=== PATIENT | male | born 1990 | race Caucasian/White ===

== ENCOUNTER → 2017-08-29 | Outpatient (CLI) | payer OTHER ==
[~2017-08-29] MED LIST: CIPR500 PO; CYCL10 PO; HYDACE5 PO; IBUP600 PO; NAPR375 PO; NAPR500EC PO; Naprosyn500 MG PO; Norco 10-325 T1 EACH PO; OXYACE5T PO; PRED10 PO; RXCYCL10 PO
[2017-08-29 13:24] LABS: BASOPHILS ABSOLUTE AUTO 0.03 K/mm3 (0.00-0.23); BASOPHILS PERCENT AUTO 1 % (0-2); EOSINOPHILS ABSOLUTE AUTO 0.02 K/mm3 (0.00-0.68); EOSINOPHILS PERCENT AUTO 0 % (0-6); Hematocrit 38.5 % (37.0-53.0); Hemoglobin 12.8 g/dL (13.5-17.5); IMMATURE GRAN ABSOLUTE AUTO 0.01 K/mm3 (0.00-0.10); IMMATURE GRAN PERCENT AUTO 0 % (0-1); LYMPHOCYTES ABSOLUTE AUTO 1.54 K/mm3 (0.84-5.20); LYMPHOCYTES PERCENT AUTO 27 % (21-46); MONOCYTES ABSOLUTE AUTO 0.47 K/mm3 (0.16-1.47); MONOCYTES PERCENT AUTO 8 % (4-13); Mean Corpuscular HGB 28.4 pg (26.0-34.0); Mean Corpuscular HGB Conc 33.2 g/dL (31.5-36.5); Mean Corpuscular Volume 85 fL (80-100); Mean Platelet Volume 10.3 fL (9.1-12.4); NEUTROPHILS ABSOLUTE AUTO 3.61 K/mm3 (1.96-9.15); NEUTROPHILS PERCENT AUTO 64 % (41-73); Platelet Count 256 K/mm3 (150-400); RDW Coefficient Variation 13.3 % (11.7-14.2); Red Blood Cell Count 4.51 M/mm3 (4.30-5.90); White Blood Cell Count 5.68 K/mm3 (4.00-11.30)
[2017-08-29 14:54] LABS: Alanine Aminotransfer (ALT/SGP 18 U/L (12-78); Albumin, Blood 4.3 g/dL (3.4-5.0); Albumin/Globulin Ratio 1.4 (0.8-1.8); Alk Phos 110 U/L (50-136); Anion Gap 9 mmol/L (6-16); Aspartate Aminotrans (AST/SGOT 19 U/L (12-37); Bilirubin, Total 0.5 mg/dL (0.1-1.0); Blood Urea Nitrogen 14 mg/dL (8-24); Bun/Creatinine Ratio 24.9 (12.0-20.0); CO2, Blood 26 mmol/L (21-32); Calcium, Blood 9.1 mg/dL (8.5-10.1); Chloride, Blood 100 mmol/L (98-108); Creatinine, Blood 0.56 mg/dL (0.60-1.20); Globulin, Blood 3.1 g/dL (2.2-4.0); Glomerular Filtration Rate >60 (60-); Glucose, Blood 100 mg/dL (70-99); Potassium, Blood 4.8 mmol/L (3.5-5.5); Sodium, Blood 135 mmol/L (136-145); Total Protein, Blood 7.4 g/dL (6.4-8.2)
== END ==
LOC: LAB SHORT 11:30
PROVIDERS: Family Medicine
DX: F11.20 Opioid dependence, uncomplicated (principal)
CPT/HCPCS: 80053; 85025

== ENCOUNTER → 2017-09-19 | Outpatient (CLI) | payer OTHER ==
[2017-09-22 04:24] LABS: MDA Not Detected (NOTDET); MDEA Not Detected (NOTDET); MDMA Not Detected (NOTDET)
== END ==
LOC: LAB 15:25
PROVIDERS: Family Medicine
DX: Z51.81 Encounter for therapeutic drug level monitoring (principal); F11.20 Opioid dependence, uncomplicated; Z79.899 Other long term (current) drug therapy
CPT/HCPCS: G0480

== ENCOUNTER 2019-01-12 00:03 | Emergency (ER) | payer OTHER ==
[~2019-01-12] VITALS: Ht 180.3 cm; Wt 86.2 kg
== END 2019-01-12 01:15 ==
LOC: ER 00:03
DX: S21.112A Laceration without foreign body of left front wall of thorax without penetration into thoracic cavity, initial encounter (principal); S41.112A Laceration without foreign body of left upper arm, initial encounter; S41.111A Laceration without foreign body of right upper arm, initial encounter; V29.9XXA Motorcycle rider (driver) (passenger) injured in unspecified traffic accident, initial encounter
CPT/HCPCS: 71101; 73030; 73080; 73130; 90471; 90714; 99284-25

== ENCOUNTER 2019-07-08 19:18 | Emergency (ER) | payer OTHER ==
[~2019-07-08] VITALS: Ht 180.3 cm; Wt 86.2 kg
[2019-07-08] MEDS ORDERED: Amoxicillin875 MG PO (20:43)
[2019-07-08] MEDS ORDERED: IBUP800 PO (20:43)
== END 2019-07-08 21:14 | disposition home or self-care (01) ==
LOC: ER 19:18
DX: K04.7 Periapical abscess without sinus (principal)
CPT/HCPCS: 99282; A9270-GY

== ENCOUNTER 2019-11-21 12:07 | Emergency (ER) | payer OTHER ==
[~2019-11-21] VITALS: Ht 180.3 cm; Wt 86.2 kg
[~2019-11-21 12:07] MED LIST changes: +Amoxicillin875 MG PO; +IBUP800 PO
[2019-11-21 13:10] LABS: BASOPHILS ABSOLUTE AUTO 0.03 K/mm3 (0.00-0.23); BASOPHILS PERCENT AUTO 1 % (0-2); EOSINOPHILS PERCENT AUTO 0 % (0-6); Hematocrit 44.7 % (37.0-53.0); IMMATURE GRAN ABSOLUTE AUTO 0.01 K/mm3 (0.00-0.10); IMMATURE GRAN PERCENT AUTO 0 % (0-1); LYMPHOCYTES ABSOLUTE AUTO 1.52 K/mm3 (0.84-5.20); LYMPHOCYTES PERCENT AUTO 29 % (21-46); MONOCYTES ABSOLUTE AUTO 0.41 K/mm3 (0.16-1.47); MONOCYTES PERCENT AUTO 8 % (4-13); Mean Corpuscular HGB 28.4 pg (26.0-34.0); Mean Corpuscular HGB Conc 33.6 g/dL (31.5-36.5); Mean Corpuscular Volume 85 fL (80-100); NEUTROPHILS ABSOLUTE AUTO 3.35 K/mm3 (1.96-9.15); NEUTROPHILS PERCENT AUTO 63 % (41-73); Platelet Count 259 K/mm3 (150-400); RDW Coefficient Variation 13.4 % (11.7-14.2); RDW Standard Deviation 41.8 fL (35.1-46.3); Red Blood Cell Count 5.28 M/mm3 (4.30-5.90); White Blood Cell Count 5.32 K/mm3 (4.00-11.30)
[2019-11-21 13:14] LABS: Albumin, Blood 4.2 g/dL (3.4-5.0); Alk Phos 196 U/L (50-136); Anion Gap 8 mmol/L (6-16); Bilirubin, Total 0.7 mg/dL (0.1-1.0); Blood Urea Nitrogen 19 mg/dL (8-24); Bun/Creatinine Ratio 29.5 (12.0-20.0); CO2, Blood 25 mmol/L (21-32); Chloride, Blood 103 mmol/L (98-108); Creatinine, Blood 0.65 mg/dL (0.60-1.20); Globulin, Blood 4.3 g/dL (2.2-4.0); Glomerular Filtration Rate >60 (60-); Glucose, Blood 121 mg/dL (70-99); Potassium, Blood 4.2 mmol/L (3.5-5.5); Sodium, Blood 136 mmol/L (136-145); Total Protein, Blood 8.5 g/dL (6.4-8.2)
[2019-11-21 13:22] LABS: Alanine Aminotransfer (ALT/SGP 1630 U/L (12-78); Aspartate Aminotrans (AST/SGOT 1233 U/L (12-37)
[2019-11-21 14:42] LABS: Source, Urine Voided
[2019-11-21 14:51] LABS: Blood, Urine Neg (Neg); Glucose Qualitative, Urine Neg (Neg); Ketones, Urine 2+ (Neg); Leukocyte Esterase, Urine 1+ (Neg); Nitrite, Urine Neg (Neg); Protein, Urine 1+ (Neg); Specific Gravity, Urine 1.015 (1.003-1.022); Urobilinogen, Urine 2+ (Normal)
[2019-11-21 15:05] LABS: Appearance, Urine Clear (Clear); Bilirubin, Urine 1+ (Neg); Color, Urine Amber (P-Yellow)
[2019-11-21 15:07] LABS: Bacteria Few /hpf; Mucus Light (0-Heavy); Red Blood Cells, Urine 0-2 /hpf (0-2); Squamous Epithelial Cells Rare /hpf (Few)
[2019-11-21] MEDS ORDERED: ONDA4ODT MM (16:53)
[2019-11-21] MEDS ORDERED: PROM25S PR (16:53)
[2019-11-23 04:31] LABS: HBSAG SCREEN Negative (Negative); HEP A AB, IGM Negative (Negative); HEP B CORE AB, IGM Negative (Negative); HEP C VIRUS AB >11.0 (0.0-0.9)
== END 2019-11-21 17:34 | disposition home or self-care (01) ==
LOC: ER 12:07
PROVIDERS: Emergency Medicine; Physician Assistant
DX: K75.9 Inflammatory liver disease, unspecified (principal); R53.1 Weakness; F15.10 Other stimulant abuse, uncomplicated; F11.10 Opioid abuse, uncomplicated; Z87.891 Personal history of nicotine dependence
CPT/HCPCS: 36415; 76705; 80053; 80074; 81001; 83690; 85025; 87086; 96361; 96374; 96375; 99284-25; J1200; J1630; J2405; J2765; J7030

== ENCOUNTER 2020-08-19 20:13 | Emergency (ER) | payer OTHER ==
[~2020-08-19] VITALS: Ht 180.3 cm; Wt 90.7 kg
[~2020-08-19 20:13] MED LIST changes: +Bactrim Ds Tab1 EACH PO; +CEPH500 PO; +ONDA4ODT MM; +PROM25S PR
[2020-08-19] MEDS ORDERED: Cleocin HCl300 MG PO (21:35)
== END 2020-08-19 21:51 | disposition home or self-care (01) ==
LOC: ER 20:13
DX: J02.9 Acute pharyngitis, unspecified (principal); K08.89 Other specified disorders of teeth and supporting structures; Z87.891 Personal history of nicotine dependence
CPT/HCPCS: 87081; 87430; 96372-59; 99284-25; A9270; J1100; J1885

== ENCOUNTER 2021-03-24 13:38 | Day surgery (SDC) | payer OTHER ==
[~2021-03-24] VITALS: Ht 180.3 cm; Wt 90.0 kg
[~2021-03-24 13:38] MED LIST changes: +Cleocin HCl300 MG PO; +HYDACE10B PO
--- NOTE | 2021-03-24 17:10 | NUR ---
PTS SURGERY WAS CANCELLED DUE TO LACK OF IV ACCESS.PT REQUESTED TO GO HOME,DR CERDA AGREED TO LET PT GO HOME AND WILL CONTACT PT TOMORROW.
== END 2021-03-24 17:13 | disposition home or self-care (01) ==
LOC: ORSCMMR 13:38
DX: S52.692A Other fracture of lower end of left ulna, initial encounter for closed fracture (principal); Z53.9 Procedure and treatment not carried out, unspecified reason
CPT/HCPCS: A9270; J0690; J1100; J1170; J2250; J2405; J2704; J3010; J7120

== ENCOUNTER 2021-03-28 12:58 | Day surgery (SDC) | payer OTHER ==
--- NOTE | 2021-03-28 16:10 | NUR ---
ATTEMPTED POWER-GLIDE X2 IN [place]. UNABLE TO THREAD LINE UP VEIN. PT VERY NERVOUS. TOOK ABOUT 15 MINUTES TO TALK PATIENT INTO RELAXING PRIOR TO PROCEDURE.
== END 2021-03-28 15:45 | disposition home or self-care (01) ==
LOC: ATC 12:58
DX: S52.692A Other fracture of lower end of left ulna, initial encounter for closed fracture (principal); S62.346A Nondisplaced fracture of base of fifth metacarpal bone, right hand, initial encounter for closed fracture; F19.11 Other psychoactive substance abuse, in remission; V86.96XA Unspecified occupant of dirt bike or motor/cross bike injured in nontraffic accident, initial encounter; Z87.891 Personal history of nicotine dependence
CPT/HCPCS: 99211

== ENCOUNTER 2021-06-08 21:41 | Emergency (ER) | payer OTHER ==
[~2021-06-08] VITALS: Ht 180.3 cm; Wt 90.7 kg
[2021-06-09] MEDS ORDERED: CEPH500 PO (01:14)
== END 2021-06-09 01:35 | disposition home or self-care (01) ==
LOC: ER 21:41
DX: M79.89 Other specified soft tissue disorders (principal); Z87.891 Personal history of nicotine dependence
CPT/HCPCS: 73130; 93970; A9270; J1885

== ENCOUNTER 2021-06-21 14:52 | Emergency (ER) | payer OTHER ==
[~2021-06-21] VITALS: Ht 180.3 cm; Wt 90.7 kg
[2021-06-21] MEDS ORDERED: PRED20 PO (15:24)
[2021-06-21] MEDS ORDERED: VALACYCLOVIR1000 MG PO (15:24)
== END 2021-06-21 15:41 | disposition home or self-care (01) ==
LOC: ER 14:52
DX: G51.0 Bell's palsy (principal); Z86.718 Personal history of other venous thrombosis and embolism; Z87.891 Personal history of nicotine dependence
CPT/HCPCS: 99283

== ENCOUNTER 2021-08-07 03:20 | Emergency (ER) | payer OTHER ==
[~2021-08-07] VITALS: Ht 180.3 cm; Wt 86.2 kg
[~2021-08-07 03:20] MED LIST changes: +PRED20 PO; +VALACYCLOVIR1000 MG PO
[2021-08-07] MEDS ORDERED: Bactrim Ds Tab1 EACH PO (03:37)
[2021-08-07] MEDS ORDERED: IBU600 MG PO (03:37)
== END 2021-08-07 03:54 | disposition home or self-care (01) ==
LOC: ER 03:20
DX: F15.10 Other stimulant abuse, uncomplicated (principal); L02.413 Cutaneous abscess of right upper limb; Z87.891 Personal history of nicotine dependence
CPT/HCPCS: 99282; A9270

== ENCOUNTER 2021-08-13 19:44 | Inpatient (IN) | payer OTHER ==
[~2021-08-13] VITALS: Ht 180.3 cm; Wt 85.4 kg
[~2021-08-13 19:44] MED LIST changes: +IBU600 MG PO
[2021-08-13 20:47] LABS: BASOPHILS ABSOLUTE AUTO 0.03 K/mm3 (0.00-0.23); BASOPHILS PERCENT AUTO 0 % (0-2); EOSINOPHILS ABSOLUTE AUTO 0.01 K/mm3 (0.00-0.68); EOSINOPHILS PERCENT AUTO 0 % (0-6); Hematocrit 35.1 % (37.0-53.0); Hemoglobin 11.5 g/dL (13.5-17.5); IMMATURE GRAN ABSOLUTE AUTO 0.03 K/mm3 (0.00-0.10); IMMATURE GRAN PERCENT AUTO 0 % (0-1); LYMPHOCYTES ABSOLUTE AUTO 2.02 K/mm3 (0.84-5.20); LYMPHOCYTES PERCENT AUTO 20 % (21-46); MONOCYTES PERCENT AUTO 10 % (4-13); Mean Corpuscular HGB 26.7 pg (26.0-34.0); Mean Corpuscular HGB Conc 32.8 g/dL (31.5-36.5); Mean Corpuscular Volume 81 fL (80-100); Mean Platelet Volume 9.1 fL (9.1-12.4); NEUTROPHILS ABSOLUTE AUTO 7.19 K/mm3 (1.96-9.15); NEUTROPHILS PERCENT AUTO 70 % (41-73); Platelet Count 425 K/mm3 (150-400); RDW Coefficient Variation 16.1 % (11.7-14.2); RDW Standard Deviation 48.5 fL (35.1-46.3); Red Blood Cell Count 4.31 M/mm3 (4.30-5.90); White Blood Cell Count 10.28 K/mm3 (4.00-11.30)
[2021-08-13 21:06] LABS: Alanine Aminotransfer (ALT/SGP 40 U/L (12-78); Albumin, Blood 3.4 g/dL (3.4-5.0); Albumin/Globulin Ratio 0.8 (0.8-1.8); Alk Phos 142 U/L (50-136); Anion Gap 6 mmol/L (6-16); Aspartate Aminotrans (AST/SGOT 18 U/L (12-37); Bilirubin, Total 0.2 mg/dL (0.1-1.0); Blood Urea Nitrogen 14 mg/dL (8-24); Bun/Creatinine Ratio 13.6 (12.0-20.0); CO2, Blood 26 mmol/L (21-32); Calcium, Blood 8.7 mg/dL (8.5-10.1); Chloride, Blood 105 mmol/L (98-108); Creatinine, Blood 1.03 mg/dL (0.60-1.20); Globulin, Blood 4.3 g/dL (2.2-4.0); Glomerular Filtration Rate >60 (60-); Glucose, Blood 104 mg/dL (70-99); Sodium, Blood 137 mmol/L (136-145); Total Protein, Blood 7.7 g/dL (6.4-8.2)
[2021-08-14 03:54] LABS: Influenza A, PCR NEGATIVE (NEGATIVE); Influenza B, PCR NEGATIVE (NEGATIVE); Resp Syncytial Virus, PCR NEGATIVE (NEGATIVE); SARS-Cov-2 (COVID-19) PCR, MMC NEGATIVE (NEGATIVE)
--- NOTE | 2021-08-14 05:41 | NUR ---
SHIFT SUMMARY PT ER ADMIT THIS SHIFT FOR R YAHAIRAUDLER ABCESS R/T TO METH USE THAT FAILED OUTPT TREATMENT WITH PO BACTRIM. PT HAS RECEIVED ZOSYN, VANCO, AND IV FLUIDS. HX OF RECENT METH ABUSE ABOUT 2 DAYS AGO PER PT REPORT. RIGHT SHOULDER IS RED AND AND INFLAMMED, BUT NOT DRAINING. PT IS VERY LETHARGIC, AND COULD BARELY STAY AWAKE THROUGH ADMISSION PROCESS, DRIFTING OFF TO SLEEP CONSTANTLY. PT REPORTS SHOULDER PAIN BUT IS VERY SLEEPY AND CANNOT STAY AWAKE. PT HAS BEEN REFUSING TREATMENT AND REFUSED AM LAB DRAWN. SURGICAL CONSULT IN PLACE FOR POSSIBLE I&D OF RIGHT SHOULDER. PT NPO AT THIS TIME.
--- NOTE | 2021-08-14 10:19 | NUR ---
PT LEFT ROOM STATING THAT HE WAS MEETING HIS FRIEND AND MOM "DOWNSTAIRS." CHARGE NURSE, SORAYA REYNAGA AND THIS NURSE TOLD HIM THAT HE IS NOT SUPPOSED TO GO OUTSIDE. PATIENT WENT ANYWAY. DON Gaines RN FROM DAY SURGERY CALLED THIS NURSE TO STATE THAT PAIENT WILL BE PICKED UP IN 30 MINUTES. CLOTHIER GUIDE VISITOR PRESENT WHEN NURSE ASKED PATIENT NOT TO GO. HE IS LOOKING FOR PATIENT NOW ([id number])
--- NOTE | 2021-08-14 18:31 | NUR ---
SHIFT SUMMARY PT AXO, IRRITABLE AND WITHDRAWN. SEE NOTE ABOUT GOING OUTSIDE EARLIER IN SHIFT. PT ATE WHILE OUTSIDE. SURGERY POSTPONED UNTIL TOMORROW. PATIENT IS TO BE NPP AT MIDNIGHT TONIGHT. IV PATENT AND INFUSING PER EMAR. PATIENT SLEPT THROUGHOUT THE REST OF THE SHIFT. MEDICATED FOR PAIN X1 THIS SHIFT. BED IN LOW POSITION, CALL LIGHT WITHIN REACH. ON TELE, NSR AT 86. BED IN LOW POSITION, CALL LIGHT WITHIN REACH.
--- NOTE | 2021-08-15 02:45 | NUR ---
LABS PT IS REFUSING LABS FOR THE SECOND MORNING IN A ROW. STATING THAT HE DOES NOT WANT TO BE POKED, AND ASKED ME TO DRAW FROM HIS IV. I STATED THAT WE COULD NOT DO THAT DUE TO POLICY AND EXPLAINED THE IMPORTANCE OF HAVING HIS LABS DRAWN. HE CONTINUED TO REFUSED. PT HAS 0300 DOSE OF VANCO ORDERED AND NEEDS A VANCO LAB DRAWN. SPOKE WITH MAYA JIMENEZ PHARMACIST, SHE STATES OK TO HANG 0300 DOSE OF VANCO ANYWAY AT 0300 AND THAT SHE WILL ORDER VANCO LAB LATER IN THE MORNING AT 1000 AND HOPES THAT PT WILL BE MORE AGREEABLE THEN.
--- NOTE | 2021-08-15 05:14 | NUR ---
SHIFT SUMMARY PT HAS BEEN SLEEPING MOST OF THE SHIFT. INTERACTS MINALLY WITH STAFF AND IS QUITE WITHDRAWN AND IRRITABLE. HE DOES NOT WANT TO BE DISTURBED BY STAFF AND HAS BEEN REFUSING LAB DRAWS. PLAN IS FOR I&D OF RIGHT SHOULDER TODAY, IT REMAINS RED, SWOLLEN AND PAINFUL TO TOUCH. MEDICATED FOR PAIN WITH TORADOL WITH EFFECT. IV ANTIBIOTCS PER ORDERS. PT CONFIRMS NPO STATUS SINCE MIDNIGHT. INDEPENDENT IN THE ROOM, VITALS STABLE. NSR ON TELE.
--- NOTE | 2021-08-15 08:12 | NUR ---
PT LEFT AMA PULLED IV TUBING OFF, CAUSING PORT TO LEAK BLOOD, WOULD NOT ALLOW THIS RN TO REMOVE IT BUT DID ALLOW TO CLAMP SHOW IT WAS NOT ACTIVELY LEAKING, STATING "LEAVE ME ALONE" AND LEFT UNIT. ATTEMPTED TO ASK PT AGAIN AT ELEVATOR TO ALLOW RN TO REMOVE IV AND AGAIN PT STATED TO LEAVE HIM ALONE AND GOT IN ELEVATOR. DID NOT SIGN AMA PAPERWORK. NOTIIFED WAGON DRILLER AND DR YOUNG.
== END 2021-08-15 08:12 | disposition left against medical advice (07) | DRG 603 ==
LOC: ER 19:44 → MEDS 08-14 04:03
PROVIDERS: Physician Assistant; Student in an Organized Health Care Education/Training Program; ADMIT Internal Medicine
DX: L02.413 Cutaneous abscess of right upper limb (principal); F15.10 Other stimulant abuse, uncomplicated; Z20.822 Contact with and (suspected) exposure to COVID-19; Z53.29 Procedure and treatment not carried out because of patient's decision for other reasons; Z86.718 Personal history of other venous thrombosis and embolism; Z87.891 Personal history of nicotine dependence; Z91.19 Patient's noncompliance with other medical treatment and regimen
CPT/HCPCS: 0241U; 36415; 73201; 76882; 80053; 83605; 85025; 87040; 96365; 99285-25; A9270; J1885; J2543; J3370; J7030; J7050; Q9967

== ENCOUNTER 2023-02-14 21:50 | Inpatient (IN) | payer OTHER ==
[~2023-02-14] VITALS: Ht 175.3 cm; Wt 83.4 kg
[2023-02-14 22:08] LABS: BASOPHILS ABSOLUTE AUTO 0.06 K/mm3 (0.00-0.23); BASOPHILS PERCENT AUTO 0 % (0-2); EOSINOPHILS ABSOLUTE AUTO 0.01 K/mm3 (0.00-0.68); EOSINOPHILS PERCENT AUTO 0 % (0-6); Hematocrit 39.3 % (37.0-53.0); Hemoglobin 13.3 g/dL (13.5-17.5); IMMATURE GRAN ABSOLUTE AUTO 0.17 K/mm3 (0.00-0.10); IMMATURE GRAN PERCENT AUTO 1 % (0-1); LYMPHOCYTES ABSOLUTE AUTO 2.17 K/mm3 (0.84-5.20); LYMPHOCYTES PERCENT AUTO 9 % (21-46); MONOCYTES ABSOLUTE AUTO 1.35 K/mm3 (0.16-1.47); MONOCYTES PERCENT AUTO 6 % (4-13); Mean Corpuscular HGB 28.2 pg (26.0-34.0); Mean Corpuscular HGB Conc 33.8 g/dL (31.5-36.5); Mean Corpuscular Volume 83 fL (80-100); Mean Platelet Volume 9.8 fL (9.1-12.4); NEUTROPHILS ABSOLUTE AUTO 19.71 K/mm3 (1.96-9.15); NEUTROPHILS PERCENT AUTO 84 % (41-73); Platelet Count 475 K/mm3 (150-400); RDW Coefficient Variation 14.3 % (11.7-14.2); RDW Standard Deviation 43.6 fL (35.1-46.3); Red Blood Cell Count 4.72 M/mm3 (4.30-5.90); White Blood Cell Count 23.47 K/mm3 (4.00-11.30)
[2023-02-14 22:22] LABS: International Normalized Ratio 0.99; Prothrombin Time Results 10.4 Sec (9.7-11.5)
[2023-02-14 22:36] LABS: Alanine Aminotransfer (ALT/SGP 21 U/L (12-78); Alk Phos 110 U/L (50-136); Anion Gap 8 mmol/L (6-16); Aspartate Aminotrans (AST/SGOT 18 U/L (12-37); Bilirubin, Total 0.3 mg/dL (0.1-1.0); Blood Urea Nitrogen 18 mg/dL (8-24); Bun/Creatinine Ratio 14.8 (12.0-20.0); CO2, Blood 24 mmol/L (21-32); Chloride, Blood 109 mmol/L (98-108); Creatinine, Blood 1.22 mg/dL (0.60-1.20); Ethanol (Alcohol), Blood, Med <3 mg/dL; Glomerular Filtration Rate 81 (60-); Glucose, Blood 125 mg/dL (70-99); Potassium, Blood 4.4 mmol/L (3.5-5.5); Sodium, Blood 141 mmol/L (136-145)
[2023-02-15] VITALS (51 sets, daily range): BP systolic 107–153; BP diastolic 78–109
[2023-02-15] MEDS ORDERED: BUPRENORPHINE HC8 MG (01:45)
[2023-02-15 04:25] LABS: BASOPHILS ABSOLUTE AUTO 0.03 K/mm3 (0.00-0.23); BASOPHILS PERCENT AUTO 0 % (0-2); EOSINOPHILS PERCENT AUTO 0 % (0-6); Hematocrit 35.9 % (37.0-53.0); Hemoglobin 12.1 g/dL (13.5-17.5); IMMATURE GRAN ABSOLUTE AUTO 0.09 K/mm3 (0.00-0.10); IMMATURE GRAN PERCENT AUTO 1 % (0-1); LYMPHOCYTES ABSOLUTE AUTO 1.42 K/mm3 (0.84-5.20); LYMPHOCYTES PERCENT AUTO 8 % (21-46); MONOCYTES ABSOLUTE AUTO 1.89 K/mm3 (0.16-1.47); MONOCYTES PERCENT AUTO 10 % (4-13); Mean Corpuscular HGB 28.5 pg (26.0-34.0); Mean Corpuscular HGB Conc 33.7 g/dL (31.5-36.5); Mean Corpuscular Volume 85 fL (80-100); Mean Platelet Volume 10.2 fL (9.1-12.4); NEUTROPHILS ABSOLUTE AUTO 15.51 K/mm3 (1.96-9.15); NEUTROPHILS PERCENT AUTO 82 % (41-73); Platelet Count 344 K/mm3 (150-400); RDW Coefficient Variation 14.3 % (11.7-14.2); RDW Standard Deviation 43.8 fL (35.1-46.3); Red Blood Cell Count 4.25 M/mm3 (4.30-5.90); White Blood Cell Count 18.94 K/mm3 (4.00-11.30)
[2023-02-15 04:44] LABS: Albumin, Blood 3.6 g/dL (3.4-5.0); Albumin/Globulin Ratio 1.1 (0.8-1.8); Bilirubin, Total 0.7 mg/dL (0.1-1.0); Bun/Creatinine Ratio 18.6 (12.0-20.0); Calcium, Blood 8.4 mg/dL (8.5-10.1); Creatinine, Blood 0.97 mg/dL (0.60-1.20); Globulin, Blood 3.3 g/dL (2.2-4.0); Potassium, Blood 3.8 mmol/L (3.5-5.5); Total Protein, Blood 6.9 g/dL (6.4-8.2)
--- NOTE | 2023-02-15 06:05 | NUR ---
SHIFT SUMMARY PATIENT TO ICU 14 FROM ED AT 0210. PATIENT IS ON KETAMINE FOR PAIN MANAGEMENT INFUSING AT 0.5 MG/KG/HR. PATIENT RESPONDS TO VERBAL STIMULI, ORIENTED X4. 02 SATS 100% ON RA. HR SR 90, BP STABLE, DENIES CP/PRESSURE. LEFT LOWER EXTREMITY IN SPLINT THAT ER DOCTOR PLACE, PATIENT ABLE TO MOVE TOES AND CAP REFILL WNL. DR. CRABTREE ANSWERING SERVICE CALLED. ROAD RASH THROUGHOUT, PHOTOS IN CHART. PATIENT UNABLE TO VOID, BLADDER SCAN DONE AND 251 MLS. PATIENT ADMITS TO METH USE YESTERDAY, SECURITY TO ROOM AND DISPOSED OF SMALL AMOUNT OF SUBSTANCE THAT PATIENT CLAIMED TO BE METH. SECURITY ALSO COUNTED AND SECURED CLAUDIO. IGNITION RISK ASSESSED HOURLY, PATIENT STATES UNDERSTANDING. NO RISK AT THIS TIME.
--- NOTE | 2023-02-15 08:31 | NUR ---
ASSUMED CARE REPORT FROM ELSY SEO AT 0700. PT RESTING IN BED. WAKES c VERBAL STIMULI. A&OX 4. FOLLOWS DIRECTIONS. C/O 10/10 PAIN TO LEFT LEG. APPEARS TO REST WHEN UNDISTURBED. KETAMINE GTT INFUSING FOR PAIN. SPLINT TO LLE. CAP REFILL <3 SEC. PULSE OX ON LEFT TOE. CT COMPLETE THIS AM. PLAN TO GO TO OR FOR SURGICAL REPAIR p NOON. MULTIPLE AREAS OF ROAD RASH TO BODY. ATTEMPTED TO CONTACT FOR UPDATE, LEFT MESSAGE. WILL CONTINUE TO MONITOR.
--- NOTE | 2023-02-15 13:32 | NUR ---
TRANSFER TO OR TEAM TO ROOM FOR CONSENT AND TRANSFER TO OR. PT INCREASINGLY AGITATED. KETAMINE GTT HAD BEEN TITRATED OFF, PT SLEEPING WHEN UNDISTURBED. WHEN AWAKEN, BEGINS YELLING AND CURSING. MEDICATED FOR PAIN ORDERED. OK TO RESTART KETAMINE PER ANESTHESIA. PT TO OR AT 1320.
[2023-02-16 00:19] VITALS: BP 141/98
[2023-02-16 05:14] LABS: BASOPHILS ABSOLUTE AUTO 0.01 K/mm3 (0.00-0.23); BASOPHILS PERCENT AUTO 0 % (0-2); EOSINOPHILS PERCENT AUTO 0 % (0-6); Hematocrit 31.2 % (37.0-53.0); Hemoglobin 10.8 g/dL (13.5-17.5); IMMATURE GRAN ABSOLUTE AUTO 0.02 K/mm3 (0.00-0.10); IMMATURE GRAN PERCENT AUTO 0 % (0-1); LYMPHOCYTES ABSOLUTE AUTO 1.46 K/mm3 (0.84-5.20); LYMPHOCYTES PERCENT AUTO 17 % (21-46); MONOCYTES PERCENT AUTO 9 % (4-13); Mean Corpuscular HGB Conc 34.6 g/dL (31.5-36.5); Mean Corpuscular Volume 84 fL (80-100); Mean Platelet Volume 9.7 fL (9.1-12.4); NEUTROPHILS PERCENT AUTO 74 % (41-73); Platelet Count 316 K/mm3 (150-400); RDW Coefficient Variation 14.7 % (11.7-14.2); Red Blood Cell Count 3.73 M/mm3 (4.30-5.90); White Blood Cell Count 8.69 K/mm3 (4.00-11.30)
[2023-02-16 05:18] VITALS: BP 132/97
--- NOTE | 2023-02-16 05:27 | NUR ---
E0S NOTE: PATIENT RESTING QUIETLY BUT AROUSABLE TO STIMULI, STATED NONE OF THE PAIN MEDICATION WORKS. FOLLOWED COMMANDS APPROPRIATELY. BLADDER SCANNED AT BEGINNING OF SHIFT, STRAIGHT CATHED +600ML OUT. BLADDER SCANNED AGAIN AT APPROX 0400 SHOWING 200ML. PATIENT QUIET AND COOPERATIVE. VSS.
[2023-02-16 05:33] LABS: Albumin, Blood 3.1 g/dL (3.4-5.0); Albumin/Globulin Ratio 0.9 (0.8-1.8); Bilirubin, Total 0.5 mg/dL (0.1-1.0); Bun/Creatinine Ratio 21.6 (12.0-20.0); Calcium, Blood 8.3 mg/dL (8.5-10.1); Creatinine, Blood 0.65 mg/dL (0.60-1.20); Globulin, Blood 3.3 g/dL (2.2-4.0); Potassium, Blood 3.7 mmol/L (3.5-5.5); Total Protein, Blood 6.4 g/dL (6.4-8.2)
[2023-02-16 07:06] VITALS: BP 123/87
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
--- NOTE | 2023-02-16 18:23 | NUR ---
SHIFT SUMMARY PT POD 1 EXTERNAL FIXATION OF LLE. RANGEL WRAP TO LLE C/D/I. PT REPORTS GOOD SENSATION TO BLE. REPORTS PAIN 10/10 WHEN PAIN MEDICATION WEARS OFF (APROX EVERY 2 HRS) PT REPORTS TOLERABLE PAIN WITH 10MG ROXICODONE Q4, 1MG DILAUDID Q2, AND 30MG TORADOL Q6. PT WAS NAUSEATED TONIGHT SO GIVEN SL ZOFRAN. DRESSING TO MULTIPLE ABRASIONS ON BACK CLEANED W/SOAP AND WATER, NON-ADHERANT DRESSING, AND THEN CLEAN PILLOW CASES WERE LAID BEHIND BACK TO AVOID INCREASED SKIN IRRITATION WITH TAPE.
[2023-02-16 20:19] VITALS: BP 120/90
[2023-02-17 03:46] VITALS: BP 120/88
[2023-02-17 04:17] LABS: BASOPHILS ABSOLUTE AUTO 0.01 K/mm3 (0.00-0.23); BASOPHILS PERCENT AUTO 0 % (0-2); EOSINOPHILS PERCENT AUTO 0 % (0-6); Hemoglobin 9.7 g/dL (13.5-17.5); IMMATURE GRAN ABSOLUTE AUTO 0.02 K/mm3 (0.00-0.10); IMMATURE GRAN PERCENT AUTO 0 % (0-1); LYMPHOCYTES ABSOLUTE AUTO 2.66 K/mm3 (0.84-5.20); LYMPHOCYTES PERCENT AUTO 35 % (21-46); MONOCYTES ABSOLUTE AUTO 0.67 K/mm3 (0.16-1.47); MONOCYTES PERCENT AUTO 9 % (4-13); Mean Corpuscular HGB 28.6 pg (26.0-34.0); Mean Corpuscular HGB Conc 33.4 g/dL (31.5-36.5); Mean Corpuscular Volume 86 fL (80-100); Mean Platelet Volume 10.1 fL (9.1-12.4); NEUTROPHILS ABSOLUTE AUTO 4.32 K/mm3 (1.96-9.15); NEUTROPHILS PERCENT AUTO 56 % (41-73); Platelet Count 261 K/mm3 (150-400); RDW Coefficient Variation 14.5 % (11.7-14.2); RDW Standard Deviation 45.3 fL (35.1-46.3); Red Blood Cell Count 3.39 M/mm3 (4.30-5.90); White Blood Cell Count 7.68 K/mm3 (4.00-11.30)
--- NOTE | 2023-02-17 04:26 | NUR ---
SHIFT SUMMARY NO ACUTE CHANGES THIS SHIFT. LEFT LEG REMAINS ELEVATED ON PILLOWS. RANGEL WRAP APPEARS CDI. PAIN MANAGED WITH TORADOL/DILAUDID/ROXICODONES. USING URINAL TO VOID. SHARON REG DIET. PLAN FOR MOBILIZATION TODAY WITH PHYSICAL THERAPY. USES CALL LIGHT APPROPRIATELY.
[2023-02-17 04:40] LABS: Albumin, Blood 2.8 g/dL (3.4-5.0); Albumin/Globulin Ratio 0.8 (0.8-1.8); Bilirubin, Total 0.3 mg/dL (0.1-1.0); Bun/Creatinine Ratio 30.3 (12.0-20.0); Calcium, Blood 8.1 mg/dL (8.5-10.1); Creatinine, Blood 0.69 mg/dL (0.60-1.20); Globulin, Blood 3.5 g/dL (2.2-4.0); Potassium, Blood 3.5 mmol/L (3.5-5.5); Total Protein, Blood 6.3 g/dL (6.4-8.2)
--- NOTE | 2023-02-17 06:25 | NUR ---
PT ENCOURAGED TO DRINK MORE FLUIDS. URINE MINIMAL AND DARK IN COLOR. GATORADE AND ICE GIVEN TO PT PER REQUEST.
[2023-02-17 07:39] VITALS: BP 118/92
[2023-02-17 07:40] VITALS: BP 119/87
--- NOTE | 2023-02-17 08:20 | NUR ---
PT ASSESSED FOR IGNITION SOURCES, NO FINDINGS.
[2023-02-17 15:18] VITALS: BP 124/88
--- NOTE | 2023-02-17 19:06 | NUR ---
SHIFT SUMMARY PT POD# 2. PAIN HAS BEEN DIFFICULT TO MANAGE. PT IS GETTING DILAUDID PO AND TORADOL FOR PAIN. PT RATES HIS PAIN AT 10/10 WHEN PAIN MEDICATION IS DUE, UPON REASSESSMENT PAIN DECREASES TO 8/10, PT APPEARS CALM AND DOES NOT SHOW SIGNS OF PAIN AFTER MEDICATION IS GIVEN. ICE AND ELEVATION ALSO USED TO HELP MANAGE PAIN AND SWELLING. PT WORKED WITH THERAPY TODAY AND TOLERATED WELL. PT HAS HAD A DECREASED APPETITE WITH LOW FLUID INTAKE. PT HAS BEEN ENCOURAGED TO TAKE FLUIDS AND HAS BEEN OFFERED DIFFERENT FLUIDS TO INCREASE INTAKE. REPORT GIVEN TO MARK SEO.
--- NOTE | 2023-02-17 19:42 | NUR ---
VISITOR BROUGHT A VAPE PEN TO THE PT. VAPE PEN REMOVED FROM THE ROOM AND PLACED IN THE PATIENTS DRAWER.
[2023-02-17 20:26] VITALS: BP 126/89
--- NOTE | 2023-02-18 04:04 | NUR ---
SHIFT SUMMARY NO ACUTE CHANGES TO REPORT OVERNIGHT, MEDICATED FOR PAIN PER EMAR. SURGICAL SITE WNL AND DRESSING IS INTACT. PT DENIES N/T IN LEFT FOOT. DRESSINGS APPLIED TO ROAD RASH ON BACK THIS SHIFT. VITALS ARE STABLE. AFFECT IS FLAT AND WITHDRAWN, BUT PT COOPERATIVE WITH CARE. BED IN LOWEST POSITION, CALL LIGHT WITHIN REACH.
[2023-02-18 04:36] VITALS: BP 119/89
--- NOTE | 2023-02-18 05:01 | NUR ---
FIRE RISK ASSESSED THIS SHIFT, PT EDUCATED ON FIRE RISKS AND IGNITION SOURCES, PT DENIES HAVING IGNITION SOURCES.
[2023-02-18 05:02] LABS: BASOPHILS ABSOLUTE AUTO 0.02 K/mm3 (0.00-0.23); BASOPHILS PERCENT AUTO 0 % (0-2); EOSINOPHILS ABSOLUTE AUTO 0.13 K/mm3 (0.00-0.68); EOSINOPHILS PERCENT AUTO 2 % (0-6); Hematocrit 27.5 % (37.0-53.0); Hemoglobin 9.4 g/dL (13.5-17.5); IMMATURE GRAN ABSOLUTE AUTO 0.01 K/mm3 (0.00-0.10); IMMATURE GRAN PERCENT AUTO 0 % (0-1); LYMPHOCYTES ABSOLUTE AUTO 1.86 K/mm3 (0.84-5.20); LYMPHOCYTES PERCENT AUTO 31 % (21-46); MONOCYTES ABSOLUTE AUTO 0.53 K/mm3 (0.16-1.47); MONOCYTES PERCENT AUTO 9 % (4-13); Mean Corpuscular HGB 28.7 pg (26.0-34.0); Mean Corpuscular HGB Conc 34.2 g/dL (31.5-36.5); Mean Corpuscular Volume 84 fL (80-100); NEUTROPHILS ABSOLUTE AUTO 3.42 K/mm3 (1.96-9.15); NEUTROPHILS PERCENT AUTO 57 % (41-73); Platelet Count 285 K/mm3 (150-400); RDW Coefficient Variation 14.4 % (11.7-14.2); RDW Standard Deviation 44.5 fL (35.1-46.3); Red Blood Cell Count 3.27 M/mm3 (4.30-5.90); White Blood Cell Count 5.97 K/mm3 (4.00-11.30)
[2023-02-18 05:34] LABS: Bun/Creatinine Ratio 30.3 (12.0-20.0); Calcium, Blood 8.3 mg/dL (8.5-10.1); Creatinine, Blood 0.6 mg/dL (0.60-1.20); Potassium, Blood 3.7 mmol/L (3.5-5.5)
[2023-02-18 07:02] VITALS: BP 115/87
[2023-02-18] MEDS ORDERED: MIRALAX17 GM PO (12:16)
[2023-02-18] MEDS ORDERED: HYDMOR2 PO (12:17)
--- NOTE | 2023-02-18 12:40 | NUR ---
PT PICKED UP PERSONAL BELONGINGS FROM SECURITY. TRANSPORT ARRANGED FOR 2PM.
[2023-02-18 13:14] VITALS: BP 120/85
--- NOTE | 2023-02-18 13:41 | NUR ---
DISCHARGE PT EDUCATED ON AND RECEIVED PRINTED DISCHARGE INSTRUCTIONS AND VERBALIZED AN UNDERSTANDING. DILAUDID HARD RX GIVEN TO PT. PT DISCHARGED WITH TRANSPORT IN PERSONAL W/C + FWW + PERSONAL BELONGINGS. BELONGINGS FROM SECURITY ALREADY PICKED UP AND IN PTS POSESSION.
== END 2023-02-18 13:45 | disposition home or self-care (01) | DRG 493 ==
LOC: ER 21:50 → ICUE 21:51 → SURS 02-15 14:51
PROVIDERS: Emergency Medicine; Family Medicine; ADMIT Internal Medicine
PROC: 0D9670Z Drainage of Stomach with Drainage Device, Via Natural or Artificial Opening (ICD-10-PCS; principal; 2023-02-14)
PROC: 0QSH35Z Reposition Left Tibia with External Fixation Device, Percutaneous Approach (ICD-10-PCS; 2023-02-15)
DX: S82.872A Displaced pilon fracture of left tibia, initial encounter for closed fracture (principal); N17.9 Acute kidney failure, unspecified; S82.452A Displaced comminuted fracture of shaft of left fibula, initial encounter for closed fracture; S92.255A Nondisplaced fracture of navicular [scaphoid] of left foot, initial encounter for closed fracture; V89.2XXA Person injured in unspecified motor-vehicle accident, traffic, initial encounter; S82.852A Displaced trimalleolar fracture of left lower leg, initial encounter for closed fracture; S40.811A Abrasion of right upper arm, initial encounter; F15.10 Other stimulant abuse, uncomplicated; G89.29 Other chronic pain; S30.811A Abrasion of abdominal wall, initial encounter; F11.10 Opioid abuse, uncomplicated; Z86.718 Personal history of other venous thrombosis and embolism; Z98.890 Other specified postprocedural states; Z87.891 Personal history of nicotine dependence
CPT/HCPCS: 27810; 31500; 70450; 71045; 71260; 72125; 73590; 73700; 74177; 76000; 80048; 80053; 83690; 83880; 85025; 85610; 90471; 90714; 90715; 93005; 93010; 94002; 96372; 96374-59; 96375; 96375-59; 96376; 96376-59; 97161; 99291-25; A9270; C1713; G0378; G0390; G0480; J0330; J0690; J1100; J1170; J1650; J1790; J1885; J2060; J2405; J2704; J2765; J3010; J7030; J7040; Q9967

== ENCOUNTER 2023-03-09 09:14 | Day surgery (SDC) | payer OTHER ==
[~2023-03-09 09:14] MED LIST changes: +BUPRENORPHINE HC8 MG; +HYDMOR2 PO; +MIRALAX17 GM PO
--- NOTE | 2023-03-09 10:19 | NUR ---
03/09/23 1019 Alireza Nichols PROCEDURE CANCELED, PER DR. BRUMFIELD. PT LEFT BEFORE RIDE COULD BE ARRANGED.
[2023-03-09] MEDS ORDERED: Bactrim Ds Tab1 EACH PO (11:33)
[2023-03-09] MEDS ORDERED: CEPH500 PO (11:33)
[2023-03-14] MEDS ORDERED: Norco 5-325 Ta1 EACH (14:34)
== END 2023-03-09 10:15 | disposition home or self-care (01) ==
LOC: ORSCSDS 09:14
DX: S82.872D Displaced pilon fracture of left tibia, subsequent encounter for closed fracture with routine healing (principal); Z53.9 Procedure and treatment not carried out, unspecified reason
CPT/HCPCS: J0171; J0690; J2795; J7120

== ENCOUNTER 2023-03-09 10:17 | Emergency (ER) | payer OTHER ==
[~2023-03-09] VITALS: Ht 180.3 cm; Wt 88.5 kg
[2023-03-09 10:53] VITALS: BP 129/85
[2023-03-09] MEDS ORDERED: CEPH500 PO (11:33)
[2023-03-09] MEDS ORDERED: Bactrim Ds Tab1 EACH PO (11:33)
== END 2023-03-09 11:41 | disposition home or self-care (01) ==
LOC: ER 10:17
DX: L02.31 Cutaneous abscess of buttock (principal); Z87.891 Personal history of nicotine dependence; Z79.899 Other long term (current) drug therapy
CPT/HCPCS: 99282

== ENCOUNTER 2023-03-16 11:20 | Day surgery (SDC) | payer OTHER ==
[2023-03-16] VITALS (17 sets, daily range): BP systolic 123–156; BP diastolic 76–120
[~2023-03-16] VITALS: Ht 177.8 cm; Wt 90.9 kg
[~2023-03-16 11:20] MED LIST changes: +Norco 5-325 Ta1 EACH
--- NOTE | 2023-03-16 11:30 | NUR ---
Into sds via wheel chair. Pt has ext fix to left lower extremity. Pt reports 6/10 left lower extremity pain History, Chart, Medications and Allergies reviewed before start of procedure.Lungs clear T/O to Auscultation. Patient confirms NPO status and agrees with scheduled surgery. Patient States Post-Procedure ride home has been arranged.
[2023-03-16 12:07] LABS: U Amphetamine Screen DETECTED; U Barbituate Screen Not Detected; U Benzodiazapine Screen DETECTED; U Buprenorphine Screen DETECTED; U Cannabinoids Screen DETECTED; U Cocaine Screen Not Detected; U Methadone Screen Not Detected; U Methamphetamine Screen DETECTED; U Opiates Screen DETECTED; U Oxycodone Screen Not Detected; U Phencyclidine Screen Not Detected; U Propoxyphene Screen Not Detected
--- NOTE | 2023-03-16 16:52 | NUR ---
PT INTO STEP AFTER POPLITEAL NERVE BLOCK DONE IN PACU. PT REPORTS THAT HIS PAIN LEVEL WAS A 20/10 PRIOR TO THE BLOCK DESPITE BEING MEDICATED A TOTAL OF 12 MG OF MORPHINE IV IN PACU. SPLINT AND RANGEL WRAP C/D/I TO LEFT LOWER EXTREMITY. PT STATES THAT HE STILL HAS "FULL" SENSATION TO THE LEFT LOWER EXTREMITY. GOOD CAPILLARY REFILL TO THE TOES ON THE LEFT FOOT. PT HAS LEFT INTERNAL JUGULAR TRIPLE LUMEN CENTRAL LINE IN PLACE WITH SMALL OCCLUSIVE DRESSING IN PLACE. THERE IS A SMALL AMOUNT OF SANGINOUS DRAINAGE AROUND INSERTION SITE, BUT NO ACUTE BLEEDING OR HEMATOMA NOTED.
--- NOTE | 2023-03-16 17:00 | NUR ---
PT TOLERATING PO FOOD AND FLUIDS. MEDICATED WITH PERCOCET 2 TABS PO FOR COMPLAINT OF 10/10 PAIN. WILL REASSESS IN 30 MINUTES. IF PAIN REMAINS POORLY CONTROLLED, WILL NOTIFY AND PLAN FOR EXTENDED RECOVERY.
--- NOTE | 2023-03-16 17:30 | NUR ---
PT STATES THAT HIS PAIN LEVEL REMAINS 10/10 DESPITE BEING MEDICATED WITH PERCOCET-SEE EMAR.
--- NOTE | 2023-03-16 17:35 | NUR ---
CONTACTED PT CONTINUES TO REPORT 10/10 PAIN. HOSPITALIST CONSULT PLACED AND PLAN FOR EXTENDED RECOVERY. MESSAGE LEFT FOR SAIDA AJ. NURSING ELECTRIC RAZOR ASSEMBLER UPDATED.
--- NOTE | 2023-03-16 17:57 | NUR ---
PT STATES THAT HE WANTS TO "GO HOME." WILL HAVE PT SIGN AMA FORM AND DISCONTINUE LIJ CENTRAL LINE BEFORE PT DEPARTURE. DR. BRUMFIELD UPDATED.
--- NOTE | 2023-03-16 18:27 | NUR ---
PT LEFT AMA. LIJ CENTRAL LINE REMOVED BY THIS RN. PT ATTEMPTED TO GET OOB WHILE RN HOLDING PRESSURE TO LIJ PRESSURE. PRESSURE HELD X 10 MINUTES. PT CURSING AND YELLING AT STAFF. SECURITY AT BEDSIDE.PT REFUSED TO GET DRESSED AND LEFT IN HOSPITAL GOWN. PT HAD BELONGINGS ON HAND. PT ESCORTED OUT BY SECURITY VIA HIS PERSONAL WHEELCHAIR.
--- NOTE | 2023-03-20 09:21 | NUR ---
03/20/23 0921 Madie Villarreal VERIFICATIONS: EDIT CHART.
== END 2023-03-16 18:35 | disposition home or self-care (01) ==
LOC: ORSCMMR 11:20 → ORSCSDS 15:00 → ORD 15:00 → ORSCMMR 18:35
PROVIDERS: Podiatrist Foot & Ankle Surgery
PROC: 0SPGX5Z Removal of External Fixation Device from Left Ankle Joint, External Approach (ICD-10-PCS; principal; 2023-03-16 12:30)
PROC: 0QSH04Z Reposition Left Tibia with Internal Fixation Device, Open Approach (ICD-10-PCS; principal; 2023-03-16 12:30)
PROC: 0QSK04Z Reposition Left Fibula with Internal Fixation Device, Open Approach (ICD-10-PCS; principal; 2023-03-16 12:30)
DX: S82.872D Displaced pilon fracture of left tibia, subsequent encounter for closed fracture with routine healing (principal); S82.62XD Displaced fracture of lateral malleolus of left fibula, subsequent encounter for closed fracture with routine healing; F17.210 Nicotine dependence, cigarettes, uncomplicated
CPT/HCPCS: 73610; A9270; C1713; J0690; J1100; J1885; J2250; J2270; J2405; J2704; J3010; J7120